=== PATIENT | female | born 1995 | race Caucasian/White ===

== ENCOUNTER 2017-12-26 09:40 | Emergency (ER) | payer OTHER ==
[~2017-12-26] VITALS: Ht 165.1 cm; Wt 79.4 kg
[2017-12-26] MEDS ORDERED: PRENATAL + DHA1 EAC1 (09:48)
== END 2017-12-26 14:43 | disposition home or self-care (01) ==
LOC: ER 09:40
DX: O20.0 Threatened abortion (principal); Z34.01 Encounter for supervision of normal first pregnancy, first trimester

== ENCOUNTER 2018-01-20 16:48 | Emergency (ER) | payer OTHER ==
[~2018-01-20] VITALS: Ht 165.1 cm; Wt 80.3 kg
[~2018-01-20 16:48] MED LIST: PRENATAL + DHA1 EAC1
== END 2018-01-20 21:38 | disposition home or self-care (01) ==
LOC: ER 16:48
DX: O20.0 Threatened abortion (principal); Z34.02 Encounter for supervision of normal first pregnancy, second trimester

== ENCOUNTER 2018-03-11 12:14 | Emergency (ER) | payer OTHER ==
[~2018-03-11] VITALS: Ht 165.1 cm; Wt 80.7 kg
== END 2018-03-11 22:27 | disposition home or self-care (01) ==
LOC: ER 12:14
DX: K52.89 Other specified noninfective gastroenteritis and colitis (principal); E86.0 Dehydration

== ENCOUNTER 2018-07-17 07:19 | Inpatient (IN) | payer OTHER ==
[~2018-07-17] VITALS: Ht 162.6 cm; Wt 98.4 kg
== END 2018-07-19 13:28 | disposition home or self-care (01) | DRG 807 ==
LOC: LDR 07:19 → OB/GYN 07:19
PROVIDERS: ADMIT Obstetrics & Gynecology
PROC: 10E0XZZ Delivery of Products of Conception, External Approach (ICD-10-PCS; principal; 2018-07-17)
PROC: 0UQGXZZ Repair Vagina, External Approach (ICD-10-PCS; 2018-07-17)
PROC: 3E033VJ Introduction of Other Hormone into Peripheral Vein, Percutaneous Approach (ICD-10-PCS; 2018-07-17)
PROC: 4A1HXCZ Monitoring of Products of Conception, Cardiac Rate, External Approach (ICD-10-PCS; 2018-07-17)
DX: O71.4 Obstetric high vaginal laceration alone (principal); Z37.0 Single live birth; Z3A.40 40 weeks gestation of pregnancy; Z22.330 Carrier of Group B streptococcus

== ENCOUNTER 2022-07-23 11:06 | Emergency (ER) | payer OTHER ==
[~2022-07-23] VITALS: Ht 162.6 cm; Wt 90.7 kg
[2022-07-23] MEDS ORDERED: TUSNEL LIQUID178 ML PO (13:23)
[2022-07-23] MEDS ORDERED: ZYRTEC10 MG PO (13:23)
== END 2022-07-23 13:54 | disposition home or self-care (01) ==
LOC: ER 11:06
DX: J00 Acute nasopharyngitis [common cold] (principal); J31.2 Chronic pharyngitis; R05.8 Other specified cough; Z20.822 Contact with and (suspected) exposure to COVID-19

== ENCOUNTER 2023-01-15 11:16 | Emergency (ER) | payer OTHER ==
[~2023-01-15] VITALS: Ht 162.6 cm; Wt 83.0 kg
[~2023-01-15 11:16] MED LIST changes: +TUSNEL LIQUID178 ML PO; +ZYRTEC10 MG PO
[2023-01-15 15:24] LABS: HEMATOCRIT 39.2 % (36.0-45.00); HEMOGLOBIN 12.8 g/dL (12.0-15.00); MEAN CELL VOLUME 90.6 fL (80.00-100.00); MEAN CORPUSCULAR HEMOGLOBIN 29.7 pg (27.00-32.0); MEAN CORPUSCULAR HGB CONC 32.8 g/dl (32.0-36.0); PLATELET COUNT 192 K/uL (150-450); RED BLOOD COUNT 4.32 M/uL (4.00-6.00); RED CELL DISTRIBUTION WIDTH 13.7 % (11.5-14.5)
[2023-01-15 16:03] LABS: CALCIUM 8.6 mg/dL (8.5-10.1); CREATININE SERUM 0.62 mg/dL (0.55-1.02); GFR 114.62; POTASSIUM 4.13 mEq/L (3.5-5.1)
[2023-01-15 16:16] LABS: PH,URINE 5.5 (5.0-8.0); URINE APPEARANCE Clear; URINE BILIRRUBIN Negative (NEGATIVE); URINE BLOOD Large; URINE COLOR Dark Yellow; URINE GLUCOSE Negative (NEGATIVE); URINE LEUKOCYTE Small; URINE NITRATE Negative
[2023-01-15 16:20] LABS: URINE BACTERIA 2823.5 uL (0.0-1933); URINE RBC 121.5 uL (0.0-20.8)
[2023-01-15 16:40] LABS: URINE PROTEIN 100 (NEGATIVE); URINE WBC 81.1 uL (0.0-23.2)
== END 2023-01-15 19:08 | disposition home or self-care (01) ==
LOC: ER 11:16
PROVIDERS: Emergency Medicine
DX: K52.89 Other specified noninfective gastroenteritis and colitis (principal); Z20.822 Contact with and (suspected) exposure to COVID-19